=== PATIENT | female | born 1965 | race Caucasian/White ===

== ENCOUNTER 2016-08-03 13:34 | Emergency (ER) | payer OTHER ==
[2016-08-03 13:11] LABS: BASOPHILS 0.5 %; BASOPHILS ABSOLUTE 0.04 10/3/uL (0.0-0.16); EOSINOPHILS 1.4 %; EOSINOPHILS ABSOLUTE 0.11 10/3/uL (0.0-0.53); ER CBC TAT 0 Hrs 11 Mins; HEMOGLOBIN 16.6 g/dL (12.0-16.0); IMMATURE GRANULOCYTES 1.1 %; IMMATURE GRANULOCYTES ABSOLUTE 0.09 10/3/uL (0.0-0.11); LYMPHOCYTES 39.2 %; LYMPHOCYTES ABSOLUTE 3.12 10/3/uL (0.67-4.30); MEAN CORPUS HGB CONC 35.5 g/dL (32.0-36.0); MEAN PLATELET VOLUME 10.1 fL (9.2-13.0); MONOCYTES 6.3 %; NEUTROPHILS 51.5 %; RBC DISTRIBUTION WIDTH 13.3 % (12.0-16.0); RED CELL COUNT 5.54 10/6/uL (4.0-5.6)
[2016-08-03 13:12] LABS: HEMATOCRIT 46.8 % (36.0-48.0); MANUAL DIFF NO %; MEAN CORPUSCULAR VOLUME 84.5 fL (80-100); PLATELET COUNT 277 10/3/uL (150-400)
[2016-08-03 13:18] LABS: INTERNATIONAL NORMAL RATI 0.9 UNITS (-); PARTIAL THROMBO TIME 28.1 SEC (22.5-37.2); PROTIME (NOT ORD) 12.2 SEC (12.0-14.5)
[~2016-08-03 13:34] MED LIST: ADVIL PO; ALPRAZOLAM PO; AMARYL2 PO; CANAGLIFLOZIN; CELEXA40 MG PO; ESTRACE1 MG PO; FLEX PO; HYDROCHLOROT25 MG PO; HYOSCYAMINE; IMITREX100 MG PO; LEVOTHYROXIN50 MCG PO; LEVOTHYROXIN88 MCG PO; LINZESS 145 M145 MCG PO; MELATONIN1 M1 PO; MELATONIN5 M1 PO; MICRO-K10 MEQ PO; MICROZIDE PO; NEUR600 PO; NOR25 PO; NORCO1 TA1 PO; PRIN20 PO; PROTONIX PO; PROVHFA PO; REG PO; SUCR PO; TRESIBA IM/SC; VICTOZA18 MG/3 ML SC; X25 PO; X5 PO; XANAX1 MG PO; XIFAXAN550 MG PO; ZOFRAN4 PO
[2016-08-03 14:19] LABS: ACETONE SMALL
[2016-08-03 14:28] LABS: BUN (BLOOD UREA NITROGEN) 14 MG/DL (6-23); CALCIUM, SERUM 8.4 MG/DL (8.5-10.4); CHEST PAIN PROFILE TAT 0 Hrs 23 Mins; SODIUM, SERUM 135 MMOL/L (135-148); TOTAL PROTEIN 7.9 G/DL (6.0-8.5); TROPONIN I <0.02 NG/ML (<0.05)
[2016-08-03 14:30] LABS: POTASSIUM, SERUM 5.6 MMOL/L (3.5-5.3); SGOT(AST) 93 U/L (5-40)
[2016-08-03 14:31] LABS: DIRECT BILIRUBIN < 0.1 MG/DL (0.0-0.4); GLUCOSE, SERUM 189 MG/DL (60-99)
[2016-08-03 14:58] LABS: ALBUMIN 3.9 G/DL (3.5-5.0); CHLORIDE, SERUM 107 MMOL/L (96-112); CO2 (CARBON DIOXIDE) 16 MMOL/L (24-34); CREATININE 0.97 MG/DL (0.55-1.02); GFR AFRICAN AMERICAN 79 ML/MIN (>=60); GFR NON AFRICAN AMERICAN 69 ML/MIN (>=60); INDIRECT BILIRUBIN(NOT ORDER) 0.5 MG/DL (0.1-0.9); TOTAL BILIRUBIN 0.6 MG/DL (0-1.2)
[2016-08-03 14:59] LABS: ALKALINE PHOSPHATASE 71 U/L (45-117); SGPT(ALT) 85 U/L (5-65)
[2016-08-03 16:52] LABS: ASCORBIC ACID (UR NOT ORDER) NEG (NEG); BILIRUBIN, URINE NEGATIVE (NEG); ER URINALYSIS TAT 0 Hrs 20 Mins; KETONE, URINE 80 MG/DL (NEG); LEUKOCYTE ESTERASE(NOT OR NEG (NEG); NITRITE (URINE) NEG (NEG); WBC (NOT ORDERED) (RFLEX) 1 (0-5)
== END 2016-08-03 21:13 | disposition home or self-care (01) ==
LOC: ER 13:34
PROVIDERS: Emergency Medicine
DX: R00.2 Palpitations (principal); E87.6 Hypokalemia; N30.90 Cystitis, unspecified without hematuria; Z90.49 Acquired absence of other specified parts of digestive tract; Z91.041 Radiographic dye allergy status; Z91.040 Latex allergy status; Z88.5 Allergy status to narcotic agent; Z88.8 Allergy status to other drugs, medicaments and biological substances; Z79.899 Other long term (current) drug therapy
CPT/HCPCS: 71010; 74176; 80048; 80053; 81001; 82009; 82248; 83690; 83735; 83880; 84484; 85025; 85610; 85730; 93005; 93225; 96374; 96375; 99285; A9270-GY; J1170; J2405